=== PATIENT | male | born 1975 | race African-American/Black ===

== ENCOUNTER 2018-12-03 12:48 | Emergency (ER) | payer OTHER ==
[~2018-12-03] VITALS: Ht 170.2 cm; Wt 149.6 kg
--- NOTE | 2018-12-03 13:02 | NUR ---
[facility] RN. NO ANSWER TO TRIAGE X1 AT THIS TIME [id number]
[2018-12-03 13:51] LABS: BASOPHILS % (AUTO) 0 % (0-1); EOSINOPHILS % (AUTO) 2 % (1-7); LYMPHOCYTES # (AUTO) 1.59 x10^3/uL (1-3.4); LYMPHOCYTES % (AUTO) 13 % (22-44); MD NO; MEAN CORPUSCULAR HEMOGLOBIN 28.4 pg (27.5-34.5); MEAN CORPUSCULAR HGB CONC 32.6 g/dL (33.2-36.2); MEAN PLATELET VOLUME 7.9 fL (7.4-10.4); MONOCYTES # (AUTO) 0.78 x10^3/uL (0.2-0.8); MONOCYTES % (AUTO) 6 % (2-9); NEUTROPHILS # (AUTO) 10.06 x10^3/uL (1.8-6.8); NEUTROPHILS % (AUTO) 80 % (42-75); PLATELET COUNT 283 x10^3/uL (130-400); RED BLOOD COUNT 5.23 x10^6/uL (4.38-5.82); RED CELL DISTRIBUTION WIDTH 16.7 % (9.4-14.8)
[2018-12-03 14:00] LABS: PROTHROMBIN TIME 10.6 Seconds (9.6-11.5)
[2018-12-03 14:02] LABS: ALBUMIN 3.6 g/dL (3.4-5.0); ANION GAP 8 mmol/L (5-15); CALCIUM 9.3 mg/dL (8.5-10.1); CHLORIDE 107 mmol/L (98-107)
[2018-12-03 14:06] LABS: ALANINE AMINOTRANSFERASE 22 U/L (12-78); ALKALINE PHOSPHATASE 89 U/L (45-117); BILIRUBIN,TOTAL 0.5 mg/dL (0.2-1.0); CREATININE 0.99 mg/dL (0.7-1.3); TOTAL PROTEIN 8.4 g/dL (6.4-8.2)
[2018-12-03] MEDS ORDERED: OMNIPAQUE 350 MG/ML, 150 ML BOTTLE ONE (15:28)
[2018-12-03 15:55] LABS: MICROSCOPIC AUTO
[2018-12-03 15:56] LABS: CULTURE INDICATED? NO
--- NOTE | 2018-12-03 16:48 | NUR ---
Patient/Caregiver given discharge instructions and they have confirmed that they understand the instructions. Patient ambulatory with steady gait.
[2018-12-03 16:49] VITALS: BP 138/100
== END 2018-12-03 16:53 | disposition home or self-care (01) ==
LOC: ED 16:05
DX: K92.2 Gastrointestinal hemorrhage, unspecified (principal); K92.1 Melena; N13.2 Hydronephrosis with renal and ureteral calculous obstruction
CPT/HCPCS: 36415; 74177; 80053; 81001; 83690; 85025; 85610; 85730; 99284; Q9967

== ENCOUNTER 2021-05-14 02:09 | Emergency (ER) | payer OTHER ==
[~2021-05-14] VITALS: Ht 175.3 cm; Wt 158.3 kg
--- NOTE | 2021-05-14 03:08 | NUR ---
PT. TO ROOM FROM LOBBY. AMBULATORY TO BR WITH STEADY GAIT TO PROVIDE CLEAN CATCH UA.
[2021-05-14 03:11] LABS: BASOPHILS % (AUTO) 0 % (0-1); EOSINOPHILS % (AUTO) 1 % (1-7); LYMPHOCYTES % (AUTO) 12 % (22-44); MEAN CORPUSCULAR HEMOGLOBIN 28.3 pg (27.5-34.5); MEAN PLATELET VOLUME 7.6 fL (7.4-10.4); MONOCYTES % (AUTO) 10 % (2-9); NEUTROPHILS % (AUTO) 76 % (42-75); PLATELET COUNT 282 x10^3/uL (130-400); RED BLOOD COUNT 5.11 x10^6/uL (4.38-5.82); RED CELL DISTRIBUTION WIDTH 16.9 % (9.4-14.8)
--- NOTE | 2021-05-14 03:13 | NUR ---
URINE SENT TO LAB. PT. AMBULATORY TO CT AT THIS TIME.
[2021-05-14 03:20] LABS: MICROSCOPIC AUTO
[2021-05-14 03:20] LABS: ALANINE AMINOTRANSFERASE 21 U/L (12-78); ALBUMIN 3.5 g/dL (3.4-5.0); CALCIUM 9.3 mg/dL (8.5-10.1); CREATININE 0.89 mg/dL (0.7-1.3)
[2021-05-14 03:22] LABS: ALKALINE PHOSPHATASE 103 U/L (45-117); BILIRUBIN,TOTAL 0.3 mg/dL (0.2-1.0); TOTAL PROTEIN 8.3 g/dL (6.4-8.2)
[2021-05-14 03:42] LABS: ANION GAP 4 mmol/L (5-15); CHLORIDE 108 mmol/L (98-107)
--- NOTE | 2021-05-14 03:42 | NUR ---
PT. TO ED WITH C/O RLQ ABD PAIN THAT RADIATES ACROSS ABD "IN WAVES" X ABOUT 4 HOURS. DENIES N/V/D. DENIES HX OF ABD SX.
[2021-05-14] MEDS ORDERED: KETOROLAC 30 MG/1 ML IVPush ONE (04:00)
[2021-05-14] MEDS ORDERED: MORPHINE SULFATE 4 MG/ML, 1ML IVPush PRN (04:00)
[2021-05-14] MEDS ORDERED: ONDANSETRON 2MG/ML, 2ML IVPush ONE (04:00)
[2021-05-14] MEDS ORDERED: SODIUM CHLORIDE FLUSH 10ML SYR IVF ONE (04:00)
[2021-05-14] MEDS ORDERED: KETOROLAC 30 MG/1 ML ONE (04:25)
--- NOTE | 2021-05-14 04:28 | NUR ---
PT. MEDICATED PER DEC FOR 05/05 ABD PAIN. PT. DECLINES MORPHINE AT THIS TIME. PT. DENIES NAUSEA AND DECLINES ZOFRAN WELL. ALL SAFETY MEASURES MAINTAINED.
[2021-05-14 05:13] VITALS: BP 167/90
== END 2021-05-14 05:14 | disposition home or self-care (01) ==
LOC: ED 02:40
DX: N20.2 Calculus of kidney with calculus of ureter (principal); R10.9 Unspecified abdominal pain
CPT/HCPCS: 36415; 74021; 74176; 80053; 81001; 83690; 85025; 96374; 99285; J1885